=== PATIENT | male | born 1970 | race Caucasian/White ===

== ENCOUNTER 2019-11-11 02:06 | Emergency (ER) | payer OTHER ==
[2019-11-11] MEDS ORDERED: ONDANSETRON HCL INJ/PF 4 MG/2 ML SDV IV ONE ×2 (02:20→06:51)
[2019-11-11] MEDS ORDERED: KETOROLAC TROMETHAMINE INJ/PF 30 MG/1 ML SDV IV ONE (02:20)
[2019-11-11 02:42] LABS: ABSOLUTE BASOPHILS # (AUTO) 0.1 10^3/uL (0.0-0.2); ABSOLUTE EOSINOPHILS # (AUTO) 0.3 10^3/uL (0.0-0.6); ABSOLUTE LYMPHOCYTES (AUTO) 1.7 10^3/uL (0.5-4.7); ABSOLUTE MONOCYTES (AUTO) 0.8 10^3/uL (0.1-1.4); ABSOLUTE NEUT (AUTO) 10.9 10^3/uL (1.7-8.2); BASOPHILS % (AUTO) 0.5 % (0-2); HEMATOCRIT 45.2 % (37.9-51.0); LYMPHOCYTES % (AUTO) 12.3 % (13-45); MEAN CORPUSCULAR HEMOGLOBIN 29.8 pg (27.0-33.4); MEAN CORPUSCULAR HGB CONC 35.4 g/dL (32.0-36.0); MEAN CORPUSCULAR VOLUME 84 fl (80-97); MONOCYTES % (AUTO) 5.6 % (3-13); PLATELET COUNT 277 10^3/uL (150-450); RED BLOOD COUNT 5.38 10^6/uL (4.35-5.55); RED CELL DISTRIBUTION WIDTH 13.8 % (11.5-14.0); SEGMENTED NEUTROPHILS % (AUTO) 79.6 % (42-78); TOTAL CELLS COUNTED % (AUTO) 100 %; WHITE BLOOD COUNT 13.7 10^3/uL (4.0-10.5)
[2019-11-11 02:59] LABS: ALBUMIN 4.7 g/dL (3.5-5.0); ALKALINE PHOSPHATASE 71 U/L (38-126); ANION GAP 10 (5-19); ASPARTATE AMINO TRANSFERASE 36 U/L (17-59); BILIRUBIN,TOTAL 0.5 mg/dL (0.2-1.3); BLOOD UREA NITROGEN 16 mg/dL (7-20); CALCIUM 9.7 mg/dL (8.4-10.2); CARBON DIOXIDE 25 mmol/L (22-30); CHLORIDE 105 mmol/L (98-107); GLUCOSE 155 mg/dL (75-110); TOTAL PROTEIN 7.8 g/dL (6.3-8.2)
[2019-11-11 03:23] LABS: APPEARANCE,URINE CLEAR; BILIRUBIN,URINE NEGATIVE (NEGATIVE); COLOR,URINE YELLOW; GLUCOSE, URINE NEGATIVE (NEGATIVE); KETONES,URINE NEGATIVE (NEGATIVE); LEUKOCYTE ESTERASE,URINE NEGATIVE (NEGATIVE); NITRITE,URINE NEGATIVE (NEGATIVE); PROTEIN,URINE 30 mg/dL (NEGATIVE); URINE SPECIFIC GRAVITY 1.024; UROBILINOGEN,URINE NEGATIVE mg/dL (<2.0)
[2019-11-11] MEDS ORDERED: MORPHINE SULFATE 10 MG/ML INJ IV ONE ×2 (03:36→06:50)
--- NOTE | 2019-11-11 04:09 | RADIOLOGY REPORT (SQ) ---
EXAM DESCRIPTION: CT ABDOMEN PELVIS WITHOUT IV CONTRAST COMPLETED DATE/TME: 11/11/2019 00:00 CLINICAL HISTORY: 48 years, Male, PAIN COMPARISON: None. TECHNIQUE: [id number] Images stored on PACS. All CT scanners at this facility use dose modulation, iterative reconstruction, and/or weight based dosing when appropriate to reduce radiation dose to as low as reasonably achievable (ALARA). [facility]: Dose Right [facility]: CareDose [facility]: Dose Right [facility]: Teradose 4D [facility]: [employer] LIMITATIONS: None. FINDINGS: Visualized lung bases are unremarkable. Osseous structures are grossly intact. Fatty infiltrative change to the liver. The spleen, adrenal glands, pancreas, right kidney are unremarkable. The gallbladder is present, slightly contracted. Mild to moderate left hydroureteronephrosis with surrounding periureteral and perinephric inflammatory changes secondary to a 5.1 mm distal left ureteral calculus. Urinary bladder is incompletely distended. No gross evidence for bowel obstruction. Normal appendix. No free air. No free fluid. IMPRESSION: Moderately moderate left hydroureteronephrosis with surrounding inflammation secondary to a 5.1 mm distal left ureteral calculus TECHNICAL DOCUMENTATION: Quality ID # [id number]: Final reports with documentation of one or more dose reduction techniques (e.g., Automated exposure control, adjustment of the mA and/or kV according to patient size, use of iterative reconstruction technique) copyright 2011 [employer]- All Rights Reserved
[2019-11-11] MEDS ORDERED: NORMAL SALINE 1000 ML 1,000 ML IV ONE (06:49)
[2019-11-11] MEDS ORDERED: TAMSULOSIN HCL 0.4 MG CAP.SR.24H PO ONE (06:50)
--- NOTE | 2019-11-11 08:36 | ER Document Report ---
Entered by RANDY FRYE SCRIBE 11/11/19 0646 Acting as scribe for:MIRANDA SWARTZ MD ED GI/ - General Chief Complaint: Possible Kidney Stone Stated Complaint: LOWER BACK/BLADDER PAIN/INABILITY TO URINATE Time Seen by Provider: 11/11/19 06:23 Primary Care Provider: MICHAEL HINES PA [Primary Care Provider] - Follow up as needed Information source: Patient Notes: This 48 year old male patient presents to the emergency department today with left flank and LLQ pain that began last night. Patient states the pain later radiated to his testes and states he is unable to urinate due to pain in his left flank and LLQ. Patient reports N/V and sweating. Patient states he was able to urinate after given something for the pain in the ED. - Related Data Allergies/Adverse Reactions: Ringer's solution,lactated [Ringers Solution,Lactated] Allergy (Severe, Verified 01/09/14 11:37) Anaphylaxis Past Medical History - General Information source: Patient - Social History Smoking Status: Never Smoker Cigarette use (# per day): No Lives with: Family Family History: None - Past Medical History Cardiac Medical History: Reports: Hx Hypertension GI Medical History: Reports: Hx Gastroesophageal Reflux Disease Skin Medical History: Reports Hx Eczema Psychiatric Medical History: Reports: Hx Post Traumatic Stress Disorder Past Surgical History: Reports: Other - Right knee ACL repair, Neck fused - Immunizations Hx Diphtheria, Pertussis, Tetanus Vaccination: No Review of Systems - Review of Systems Constitutional: See HPI, Diaphoresis EENT: No symptoms reported Cardiovascular: No symptoms reported Respiratory: No symptoms reported Gastrointestinal: See HPI, Abdominal pain - LLQ, Nausea, Vomiting Genitourinary: See HPI, Flank pain - L, Other - Unable to urinate Male Genitourinary: See HPI, Testicular pain Musculoskeletal: No symptoms reported Skin: No symptoms reported Hematologic/Lymphatic: No symptoms reported Neurological/Psychological: No symptoms reported -: Yes All other systems reviewed and negative Physical Exam - Vital signs Vitals: Temp Pulse Resp BP Pulse Ox 98.0 F 72 22 H 203/129 H 98 11/11/19 02:13 11/11/19 02:13 11/11/19 02:13 11/11/19 02:13 11/11/19 02:13 - General General appearance: Appears well, Alert - HEENT Head: Normocephalic, Atraumatic Eyes: Normal Pupils: PERRL - Respiratory Respiratory status: No respiratory distress Chest status: Nontender Breath sounds: Normal Chest palpation: Normal - Cardiovascular Rhythm: Regular Heart sounds: Normal auscultation Murmur: No - Abdominal Inspection: Normal Distension: No distension Bowel sounds: Normal Tenderness: Tender - LLQ - Back Back: Nontender - Extremities General upper extremity: Normal inspection. No: Edema General lower extremity: Normal inspection. No: Edema - Neurological Neuro grossly intact: Yes Cognition: Normal Orientation: AAOx4 Speech: Normal - Psychological Associated symptoms: Normal affect, Normal mood - Skin Skin Temperature: Warm Skin Moisture: Dry Skin Color: Normal Course - Re-evaluation Re-evalutation: 11/11/19 08:21 Patient reports he is feeling better at this time. Patient has received IV fluids IV morphine and Zofran. Prior to my arrival patient had received IV ketorolac and morphine for control of ureteral colic left-sided. 11/11/19 08:32 Discussed with patient whether or not he had a condition of high blood pressure. Patient patient reports that he has been on losartan and lisinopril in the past but he is not on any medications at this time. And he states that his blood pressure is usually not this high as it is today. Orange is that the patient is under stress with passing a kidney stone and I advised him to follow- up with his primary care physician regarding blood pressure management. - Vital Signs Vital signs: Temp Pulse Resp BP Pulse Ox 98.5 F 84 15 180/101 H 95 11/11/19 05:31 11/11/19 05:31 11/11/19 05:31 11/11/19 05:31 11/11/19 05:31 11/11/19 08:22 Vital signs as of 531 shows a blood pressure 180/101 otherwise negative repeat blood pressures will be done prior to discharge. - Laboratory Result Diagrams: 11/11/19 02:28 11/11/19 02:28 Laboratory results interpreted by me: 11/11/19 11/11/19 11/11/19 02:28 02:28 03:13 WBC 13.7 H Lymph % (Auto) 12.3 L Absolute Neuts (auto) 10.9 H Seg Neutrophils % 79.6 H Creatinine 1.37 H Est GFR (MDRD) Non-Af 55 L Glucose 155 H Urine Protein 30 H Urine Blood LARGE H 11/11/19 08:22 Laboratory shows a 13,000 white count with large amount of blood in urine no other abnormality noted. Other than a creatinine of 1.37. Patient is receiving IV fluids 1 L at this time. - Diagnostic Test Radiology reviewed: Image reviewed, Reports reviewed Radiology results interpreted by me: 11/11/19 08:23 CT of abdomen and pelvis shows a 5.1 left distal ureteral stone with hydronephrosis. No other acute process noted. Discharge - Discharge Clinical Impression: Left ureteral calculus, Abdominal pain, Hematuria Condition: Stable Disposition: HOME, SELF-CARE Additional Instructions: Kidney Stone You are passing or have passed a kidney stone. These stones are usually due to increased calcium or uric acid concentrations in your urine. Stones within the kidney itself are not painful. The pain occurs as the stone leaves the kidney to pass down the long tube, called the ureter, leading to the bladder. If the stone is small, it will usually pass by itself. Most patients can pass the stone at home. You will usually receive medications for pain, nausea or vomiting, and sometimes a medication to assist in passing the kidney stone. However, if the pain is very severe or if vomiting prevents you from taking oral pain medications, you may need to return for further treatment. Drink three or four quarts of fluids per day. You will be given pain medication (if needed) and urine strainers. Strain all your urine to see if the stone passes. If your doctor has asked you to bring the stone in for analysis, return with the stone once it has passed. Return if pain or vomiting become severe, if you develop a high fever, if you are unable to pass your urine, or if other unusual symptoms occur. Prescriptions: Tamsulosin HCl [Flomax 0.4 mg Cap.sr] 0.4 mg PO DAILY #7 cap.sr.24h Ibuprofen [Motrin 800 mg Tablet] 800 mg PO Q8H PRN #21 tablet PRN Reason: pain Oxycodone HCl/Acetaminophen [Percocet 5-325 mg Tablet] 1 - 2 tab PO Q4H PRN #15 tablet PRN Reason: Ondansetron [Zofran Odt 4 mg Tablet] 1 - 2 tab PO Q4H PRN #15 tab.rapdis PRN Reason: For Nausea/Vomiting Forms: Elevated Blood Pressure Referrals: MICHAEL HINES PA [Primary Care Provider] - Follow up as needed SAADIA AVALOS MD [NO LOCAL MD] - Follow up in 3-5 days I personally performed the services described in the documentation, reviewed and edited the documentation which was dictated to the scribe in my presence, and it accurately records my words and actions.
[2019-11-11 08:39] VITALS: BP 168/98
== END 2019-11-11 08:45 | disposition home or self-care (01) ==
LOC: ER 02:06
DX: N20.1 Calculus of ureter (principal); R31.9 Hematuria, unspecified; R10.9 Unspecified abdominal pain; M54.5 Low back pain; R39.89 Other symptoms and signs involving the genitourinary system; R33.9 Retention of urine, unspecified; R10.32 Left lower quadrant pain; R11.2 Nausea with vomiting, unspecified; R61 Generalized hyperhidrosis; Z88.8 Allergy status to other drugs, medicaments and biological substances
CPT/HCPCS: 96376; 99284; 96361; 96374; 96375; 36415; 83690; 85025; 80053; 81001; 74176; J1885; J2270; J2405; J7030